=== PATIENT | female | born 1990 | race Caucasian/White ===

== ENCOUNTER 2019-04-19 11:53 | Inpatient (IN) | payer SELFPAY ==
[~2019-04-19] VITALS: Ht 152.4 cm; Wt 65.8 kg
[2019-04-19] MEDS ORDERED: ONDANSETRON HCL 4MG/2ML INJ IV STA (16:06)
[2019-04-19] MEDS ORDERED: SODIUM CHLORIDE 0.9% 1,000 ML IV ONE (16:06)
[2019-04-19 16:56] LABS: BASOPHILS % 0.3 % (0.0-2.0); CHLORIDE 107 mEq/L (98-107); HEMATOCRIT. 36.8 % (36.0-48.0); HEMOGLOBIN. 12.2 g/dL (12.0-16.0); MEAN CORPUSCULAR VOLUME 81.3 fL (81.0-99.0); MEAN PLATELET VOLUME 8.5 fl (7.4-10.4); MONOCYTES % 2.8 % (2.0-8.0); NEUTROPHILS % 86.9 % (40.0-76.0); PLATELET 274 x1000/uL (130-400); PROTHROMBIN TIME 10.5 sec (9.6-11.0); RED BLOOD CELL COUNT 4.53 mill/uL (4.2-5.4); RED CELL DISTRIBUTION WIDTH 15.5 % (11.6-14.6)
[2019-04-19 17:05] LABS: CLARITY URINE CLOUDY (CLEAR); COLOR URINE DARK YELLOW (YELLOW); KETONES URINE TRACE (NEGATIVE); LEUKOCYTE ESTERASE URINE NEGATIVE (NEGATIVE); NITRITE URINE POSITIVE (NEGATIVE); OCCULT BLOOD URINE 3+ (NEGATIVE); PH URINE 5.5 (4.5-8.0); PROTEIN URINE 1+ (NEGATIVE); SPECIFIC GRAVITY URINE 1.035 (1.005-1.030); UROBILINOGEN URINE 0.2 E.U./dL (0.2-1.0)
[2019-04-19] MEDS ORDERED: MORPHINE SULFATE 2 MG/ML CPJ (NOT FOR IM USE) IV ONE ×2 (17:45→21:45)
[2019-04-19] MEDS ORDERED: IOHEXOL-300 100 ML BOTTLE ONE (21:19)
[2019-04-19] MEDS ORDERED: CEFTRIAXONE 1 G PREMIX 50 ML IV ONE (21:45)
[2019-04-19] MEDS ORDERED: ONDANSETRON HCL 4MG/2ML INJ IV ONE (21:45)
[2019-04-20] VITALS: BP_SYST 118; BP_SYST 96; BP_DIAS 49; BP_DIAS 76
[2019-04-20] MEDS ORDERED: PIPERACILLIN/TAZ 3.375G PREMIX 50 ML IV SCH
[2019-04-20 04:00] VITALS: BP 169/89
[2019-04-20 08:00] VITALS: BP 92/52
[2019-04-20] MEDS: PIPERACILLIN/TAZOBACTAM 3.375 G in DEXT 5% WATER 100 ML IV SCH ×4 (08:28→23:56)
[2019-04-20] MEDS: MORPHINE SULFATE 2 MG/ML CPJ (NOT FOR IM USE) IV PRN ×2 (10:06→16:33)
[2019-04-20 12:00] VITALS: BP 95/51
[2019-04-20 16:00] VITALS: BP 108/57
[2019-04-20] MEDS: DOXYCYCLINE 100 MG in DEXT 5% WATER 100 ML IV SCH (16:48)
[2019-04-20 20:00] VITALS: BP 96/51
[2019-04-20 20:50] LABS: HEMATOCRIT. 31.7 % (36.0-48.0); HEMOGLOBIN. 10.4 g/dL (12.0-16.0); MEAN CORPUSCULAR HEMOGLOBIN 27.1 pg (28.0-32.0); MEAN CORPUSCULAR VOLUME 82.5 fL (81.0-99.0); MEAN PLATELET VOLUME 8.3 fl (7.4-10.4); PLATELET 220 x1000/uL (130-400); RED BLOOD CELL COUNT 3.84 mill/uL (4.2-5.4); RED CELL DISTRIBUTION WIDTH 16.1 % (11.6-14.6)
[2019-04-20 20:52] LABS: CHLORIDE 107 mEq/L (98-107)
[2019-04-20 22:52] LABS: PLATELET ESTIMATE NORMAL
[2019-04-21] VITALS (13 sets, daily range): BP systolic 94–139; BP diastolic 54–73
[2019-04-21] MEDS: DOXYCYCLINE 100 MG in DEXT 5% WATER 100 ML IV SCH ×2 (05:29→17:58)
[2019-04-21] MEDS: PIPERACILLIN/TAZOBACTAM 3.375 G in DEXT 5% WATER 100 ML IV SCH (06:33)
[2019-04-21] MEDS ORDERED: LIDOCAINE HCL 1% 20ML VIAL (Pyxis) INJ ONE (12:31)
[2019-04-21] MEDS ORDERED: FENTANYL CITRATE/PF 50MCG/ML 2ML VIAL ONE (12:31)
[2019-04-21] MEDS ORDERED: SODIUM BICARBONATE 4% (2.4MEQ) 5ML VIAL IV ONE (12:31)
[2019-04-21] MEDS ORDERED: GENTAMICIN 120MG PREMIX 100 ML IV SCH (13:00)
[2019-04-21 13:07] LABS: CHLORIDE 108 mEq/L (98-107)
[2019-04-21] MEDS ORDERED: FENTANYL CITRATE/PF 50MCG/ML 2ML VIAL IV ONE (13:30)
[2019-04-21] MEDS: POTASSIUM CHLORIDE 20MEQ TABLET SR PO SCH (15:46)
[2019-04-21] MEDS: CLINDAMYCIN 900 MG in DEXTROSE 5% WATER 50 ML IV SCH ×2 (15:46→20:01)
[2019-04-21] MEDS: MORPHINE SULFATE 2 MG/ML CPJ (NOT FOR IM USE) IV PRN (18:14)
[2019-04-22] VITALS: BP 90/51
[2019-04-22 04:00] VITALS: BP 92/56
[2019-04-22] MEDS: GENTAMICIN 100MG PREMIX 50 ML IV SCH ×3 (04:18→23:27)
[2019-04-22] MEDS: CLINDAMYCIN 900 MG in DEXTROSE 5% WATER 50 ML IV SCH ×3 (04:57→20:27)
[2019-04-22] MEDS: DOXYCYCLINE 100 MG in DEXT 5% WATER 100 ML IV SCH (05:53)
[2019-04-22 08:00] VITALS: BP 102/66
[2019-04-22] MEDS: POTASSIUM CHLORIDE 20MEQ TABLET SR PO SCH (08:44)
[2019-04-22 12:00] VITALS: BP 103/69
[2019-04-22 16:00] VITALS: BP 114/73
[2019-04-22] MEDS ORDERED: POTASSIUM CHLORIDE 20MEQ TABLET SR PO PRN (18:15)
[2019-04-22 20:00] VITALS: BP 113/71
[2019-04-22 23:08] LABS: BASOPHILS % 0.2 % (0.0-2.0); HEMATOCRIT. 30.9 % (36.0-48.0); HEMOGLOBIN. 10.4 g/dL (12.0-16.0); MEAN CORPUSCULAR HEMOGLOBIN 27.3 pg (28.0-32.0); MEAN CORPUSCULAR VOLUME 80.9 fL (81.0-99.0); MEAN PLATELET VOLUME 8.4 fl (7.4-10.4); MONOCYTES % 8.6 % (2.0-8.0); NEUTROPHILS % 70.2 % (40.0-76.0); PLATELET 267 x1000/uL (130-400); RED BLOOD CELL COUNT 3.82 mill/uL (4.2-5.4); RED CELL DISTRIBUTION WIDTH 15.9 % (11.6-14.6)
[2019-04-23] VITALS: BP 96/57
[2019-04-23] MEDS: CLINDAMYCIN 900 MG in DEXTROSE 5% WATER 50 ML IV SCH ×3 (03:44→19:51)
[2019-04-23 04:00] VITALS: BP 101/57
[2019-04-23] MEDS: DOXYCYCLINE 100 MG in DEXT 5% WATER 100 ML IV SCH ×2 (06:42→17:45)
[2019-04-23 08:00] VITALS: BP 100/66
[2019-04-23 12:00] VITALS: BP 101/54
[2019-04-23] MEDS ORDERED: GENTAMICIN SULFATE 140 MG in SODIUM CHLORIDE 0.9% 100 ML IV SCH (13:00)
[2019-04-23 14:34] LABS: CHLORIDE 111 mEq/L (98-107)
[2019-04-23 14:38] LABS: PHOSPHORUS 3.4 mg/dL (2.5-4.9)
[2019-04-23 16:00] VITALS: BP 110/62
[2019-04-23 20:00] VITALS: BP 99/54
[2019-04-23] MEDS: GENTAMICIN SULFATE 100 MG in SODIUM CHLORIDE 0.9% 100 ML IV SCH (21:50)
[2019-04-24] VITALS: BP 96/60
[2019-04-24 04:00] VITALS: BP 89/62
[2019-04-24] MEDS: CLINDAMYCIN 900 MG in DEXTROSE 5% WATER 50 ML IV SCH ×2 (04:37→13:02)
[2019-04-24] MEDS: GENTAMICIN SULFATE 100 MG in SODIUM CHLORIDE 0.9% 100 ML IV SCH (05:41)
[2019-04-24] MEDS: DOXYCYCLINE 100 MG in DEXT 5% WATER 100 ML IV SCH (06:33)
[2019-04-24 07:13] LABS: CHLORIDE 107 mEq/L (98-107)
[2019-04-24 08:00] VITALS: BP 96/56
[2019-04-24 12:00] VITALS: BP 110/69
[2019-04-24] MEDS ORDERED: METR500T MT (13:15)
[2019-04-24] MEDS ORDERED: DOXY100T2 MT (13:15)
[2019-04-24 13:55] VITALS: BP 110/69
[2019-04-24] MEDS ORDERED: GENTAMICIN 100MG PREMIX 50 ML IV SCH (17:00)
== END 2019-04-24 15:33 | disposition home or self-care (01) | DRG 531 ==
LOC: ER 12:17 → 6EST 22:31 → ENRESERV 22:49
PROVIDERS: ADMIT Family Medicine; ATTEND Family Medicine
DX: N70.93 Salpingitis and oophoritis, unspecified (principal); L02.211 Cutaneous abscess of abdominal wall; Z98.891 History of uterine scar from previous surgery
CPT/HCPCS: 36415; 71046; 74177; 76700; 76830; 76856; 77012; 80048; 80053; 80069; 80076; 80170; 81003; 83605; 85025; 86304; 87075; 88108; 88312; 99285; C1893; J0696; J1580; J2270; J2405; J2543; J3010; J3490; J7030; J7050; J7060; Q9967